=== PATIENT | female | born 1975 | race Caucasian/White ===

== ENCOUNTER 2019-07-24 09:01 | Outpatient (CLI) | payer OTHER, SELFPAY ==
--- NOTE | 2019-07-24 09:20 | NEURO_ITS ---
PATIENT NUMBER: [id number] DATE OF SERVICE: 07/24/2019 IMPRESSION: Patient complains of numbness of hands. # Carpal tunnel syndrome bilaterally, left worse than right. # No ulnar neuropathy # Normal needle/EMG exam Nerve Conduction Studies Anti Sensory Summary Table Stim Site NR Peak (ms) P-T Amp (?V) Site1 Site2 Delta-P (ms) Dist (cm) Idris (m/s) Left Median Anti Sensory (2-3nd Digit) Wrist 4.0 86.6 Wrist 2-3nd Digit 4.0 14.0 35 Wrist 4.1 63.0 Wrist 2-3nd Digit 4.0 14.0 35 Right Median Anti Sensory (2-3nd Digit) Wrist 2.8 92.3 Wrist 2-3nd Digit 2.8 14.0 50 Wrist 5.6 63.2 Wrist 2-3nd Digit 2.8 14.0 50 Left Radial Anti Sensory (Base 1st Digit) Wrist 2.0 24.9 Wrist Base 1st Digit 2.0 0.0 Right Radial Anti Sensory (Base 1st Digit) Wrist 2.1 15.5 Wrist Base 1st Digit 2.1 0.0 Left Ulnar Anti Sensory (5th Digit) Wrist 2.3 69.0 Wrist 5th Digit 2.3 14.0 61 Right Ulnar Anti Sensory (5th Digit) Wrist 2.4 29.1 Wrist 5th Digit 2.4 14.0 58 Motor Summary Table Stim Site NR Onset (ms) O-P Amp (mV) Site1 Site2 Delta-0 (ms) Dist (cm) Idris (m/s) Left Median Motor (Abd Poll Brev) Wrist 5.0 2.2 Elbow Wrist 5.1 28.0 55 Elbow 10.1 2.3 Right Median Motor (Abd Poll Brev) Wrist 3.8 1.5 Elbow Wrist 4.3 28.0 65 Elbow 8.1 1.5 Left Ulnar Motor (Abd Dig Minimi) Wrist 2.2 5.5 A Elbow Wrist 4.8 29.0 60 A Elbow 7.0 4.3 Right Ulnar Motor (Abd Dig Minimi) Wrist 2.3 6.8 A Elbow Wrist 5.0 29.0 58 A Elbow 7.3 4.9 F Wave Studies NR F-Lat (ms) L-R F-Lat (ms) Left Median (Mrkrs) (Abd Poll Brev) 29.59 0.14 Right Median (Mrkrs) (Abd Poll Brev) 29.45 0.14 Left Ulnar (Mrkrs) (Abd Dig Min) 27.80 0.25 Right Ulnar (Mrkrs) (Abd Dig Min) 27.54 0.25 EMG Side Muscle Nerve Root Ins Act Fibs Amp Dur Recrt Comment Right 1stDorInt Ulnar C8-T1 Nml Nml Nml Nml Nml Right Ext Indicis Radial (Post Int) C7-8 Nml Nml Nml Nml Nml Right Ext Digitorum Radial (Post Int) C7-8 Nml Nml Nml Nml Nml Right BrachioRad Radial C5-6 Nml Nml Nml Nml Nml Right PronatorTeres Median C6-7 Nml Nml Nml Nml Nml Right Abd Poll Brev Median C8-T1 Nml Nml Nml Nml Nml Left 1stDorInt Ulnar C8-T1 Nml Nml Nml Nml Nml Left Ext Indicis Radial (Post Int) C7-8 Nml Nml Nml Nml Nml Left Ext Digitorum Radial (Post Int) C7-8 Nml Nml Nml Nml Nml Left BrachioRad Radial C5-6 Nml Nml Nml Nml Nml Left PronatorTeres Median C6-7 Nml Nml Nml Nml Nml Left Abd Poll Brev Median C8-T1 Nml Nml Nml Nml Nml MTDD
== END 2019-07-24 09:02 | disposition home or self-care (01) ==
PROVIDERS: PCP Internal Medicine; Visit Provider Nurse Practitioner Family
DX: G56.03 Carpal tunnel syndrome, bilateral upper limbs (principal)
CPT/HCPCS: 95886; 95911

== ENCOUNTER 2019-11-21 08:26 | Outpatient (CLI) | payer OTHER, SELFPAY ==
--- NOTE | ~2019-11-21 | US_ITS ---
EXAMINATION: US thyroid DATE: 11/21/2019 09:02 INDICATION: Nontoxic single thyroid nodule TECHNIQUE: Multiple ultrasound images of the thyroid were obtained. COMPARISON: None. FINDINGS: The right thyroid lobe measures 4.4 x 3.0 x 3.1 cm. The left thyroid lobe measures 4.6 x 1.4 x 1.5 c m. 3.5 x 2.9 x 2.8 cm predominantly solid hypervascular isoechoic nodule with smooth margins and wit hout internal echogenic foci in the right thyroid lobe (TI-RADS 3, mildly suspicious , FNA if >=2.5 c m, annual followup is >1.5 cm). There is a second wider than tall solid very hypoechoic 1.6 x 1.5 x 0 .9 cm nodule with smooth margins and without internal echogenic foci at the junction of the inferior right thyroid and thyroid isthmus, (TI-RADS 4, moderately suspicious , FNA if >=1.5 cm, annual follow up is >1 cm). There are few <5 mm anechoic cystic nodules in the left thyroid lobe, couple with small peripheral echogenic foci likely representing inspissated colloid. There is normal echotexture, echo genicity and vascular flow throughout the thyroid gland. IMPRESSION: 1. Multiple thyroid nodules, 2 of which in the right lobe meet consensus criteria for ultrasound-guid ed biopsy. Would recommend biopsy of at least the higher grade 1.6 cm TI RADS 4 nodule but would also consider biopsy of the larger 3.5 cm TI RADS 3 nodule. Reviewed, dictated and finalized at location A. IMPRESSION: 1. Multiple thyroid nodules, 2 of which in the right lobe meet consensus criter ia for ultrasound-guided biopsy. Would recommend biopsy of at least the higher grade 1.6 cm TI RADS 4 nodule but would also consider biopsy of the larger 3.5 cm TI RADS 3 nodule.
== END 2019-11-21 08:27 | disposition home or self-care (01) ==
LOC: ANHIMG 08:31
PROVIDERS: PCP Internal Medicine; Visit Provider Internal Medicine Endocrinology, Diabetes & Metabolism
DX: E04.2 Nontoxic multinodular goiter (principal)
CPT/HCPCS: 76536

== ENCOUNTER 2020-01-10 13:09 | Outpatient (CLI) | payer OTHER, SELFPAY ==
--- NOTE | ~2020-01-10 | US_ITS ---
EXAMINATION: US FNA w image guidance DATE: 01/10/2020 14:15 INDICATION: Right thyroid nodule. TECHNIQUE: The procedure and its benefits, risks, and benefits were discussed with the patient. Risks specifical ly discussed included bleeding. The patient verbalized understanding of the risks and agreed to proce ed. The neck was prepped and draped in the usual sterile manner. 1% lidocaine was used for local ane sthesia. 5 passes were made with a 25G needle into the lesion. Appropriate needle location was docu mented with continuous sonographic guidance. There were no immediate complications. The patient unde rstood to call the ordering physician for results after a week and a half and verbalized that underst anding. FINDINGS: Grayscale ultrasound images demonstrate needles advanced into a 1.6 cm nodule in inferior thyroid at the junction of the right thyroid lobe and isthmus for biopsy. IMPRESSION: 1. Ultrasound-guided fine needle aspiration of a thyroid nodule. Reviewed, dictated and finalized at location A.
== END 2020-01-10 13:10 | disposition home or self-care (01) ==
PROVIDERS: PCP Internal Medicine; Visit Provider Internal Medicine Endocrinology, Diabetes & Metabolism
DX: E04.1 Nontoxic single thyroid nodule (principal)
CPT/HCPCS: 10005; 88173; 88305

== ENCOUNTER 2020-01-15 00:07 | Outpatient (CLI) | payer OTHER, SELFPAY ==
[2020-01-15 18:52] LABS: SARS-CoV-2 RNA PCR Negative
== END 2020-01-15 00:08 | disposition home or self-care (01) ==
LOC: ANHCOVIDDT 00:08
PROVIDERS: PCP Internal Medicine; Visit Provider Orthopaedic Surgery
DX: Z01.812 Encounter for preprocedural laboratory examination (principal); Z11.59 Encounter for screening for other viral diseases
CPT/HCPCS: 87635; C9803; U0003

== ENCOUNTER 2020-01-17 00:04 | Day surgery (SDC) | payer OTHER, SELFPAY ==
[2020-01-03 14:13] VITALS: BMI 42.7
--- NOTE | 2020-01-09 12:34 | PM.IMHP ---
H&P: HPI History of Present Illness Chief complaint: right carpal tunnel syndrome Narrative: Manuela Wright is a 44 year old female Hand/Wrist Pain Pt presents with bilateral wrist pain. She has had EMG/Nerve conduction exam 07/24/19. Involved wrist: right (BILATERAL) Dominant hand: right Onset: gradual Description of the injury: BILATERAL Location of pain: posterior, dorsal wrist, radial wrist and carpal bones Timing of pain: intermittent Associated symptoms: Reports instability and weakness Exacerbated by: activities of daily living, writing, manipulative tasks, throwing, rotational activities and extreme limits of motion Swelling: No History of occupational/recreational activity with repetitive movement: No History of prior hand/wrist injury: No Review of Systems Review of Systems: All systems reviewed & are unremarkable except as noted in HPI and below Constitutional: Constitutional: Denies headache(s) and Denies weakness Eyes: Eyes: Denies blurry vision, Denies change in vision and Denies loss of vision ENT: Denies dizziness, Denies dry mouth, Denies headache(s) and Denies nasal congestion Cardiovascular: Cardiovascular: Denies chest pain, Denies syncope, Denies leg edema and Denies dyspnea on exertion Respiratory: Respiratory: Denies cough and Denies dyspnea on exertion Gastrointestinal: Gastrointestinal: Denies abdominal pain, Denies constipation and Denies diarrhea Genitourinary: Genitourinary: Denies urinary frequency Musculoskeletal: Musculoskeletal: Reports as per HPI and Denies numbness Integumentary/Breasts: Skin/Breast: Reports system reviewed and no additional complaints, except as docu Neurologic: Denies dizziness, Denies syncope, Denies headache(s), Denies loss of vision, Denies numbness and Denies weakness Psychiatric: Psychiatric: Reports no additional psychiatric complaints Endocrine: Endocrine: Reports no additional endocrine complaints Hematologic/Lymphatic: Hematologic/Lymphatic: Reports no additional hematologic/lymphatic complaints [facility] Past Medical History Medical History Bilateral hand pain Bilateral wrist pain Carpal tunnel syndrome Surgical History Surgical History H/O arthroscopic knee surgery Family History Family History Mother Diabetes mellitus Hypertension Sibling Hypertension Father Family history of lung cancer Family history of malignant neoplasm of brain Other Family history of cardiovascular disease Family history of thyroid disease Social History Social History Smoking status: Never smoker Alcohol intake: never Spiritual care concerns: No Meds Home Medications and Allergies Home Medications Medication Instructions Recorded Confirmed Type methimazole 5 mg tablet 5 mg PO DAILY #90 tablet 11/12/19 01/03/20 Rx omega-3 fatty acids 1,000 mg 1,000 mg PO DAILY 11/12/19 01/03/20 History capsule chlorhexidine gluconate 4 % 1 applic TOPICAL ONCE #237 ml 12/10/19 01/03/20 Rx topical liquid glucos sul [id number] 1 cap PO DAILY 01/03/20 01/03/20 History [Glucosamine Chondroitin] Allergies Allergy/AdvReac Type Severity Reaction Status Date / Time No Known Allergies Allergy Verified 01/03/20 14:13 Exam Narrative: Exam Narrative: Exam Const Constitutional General: cooperative Nutritional Appearance: average body habitus Orientation/consciousness: patient oriented x3 Constitutional Limitations: no limitations HENMT Head: normal to inspection Ears: hearing grossly normal bilaterally General nose exam: Normal external nose present Face and sinus: normal facial exam Mouth: moist mucous membranes Teeth and gingiva: dentition normal Eyes General: appearance normal, both eyes and all related structures
--- NOTE | 2020-01-16 10:37 | WPDANESEPPF ---
Anes - Initial Pre Proc Eval Procedure: Operation Date: 01/17/20 07:30 Proposed Procedures p Right Carpal Tunnel Release - Chano Karimi MD Date/Time: 01/16/20 10:37 Surgeon: Chano Karimi MD Pre Op Diagnosis: right carpal tunnel syndrome Patient Data Age: 44 Gender: F Height: 1.68 m Weight: 120.2 kg Allergies Allergy/AdvReac Type Severity Reaction Status Date / Time No Known Allergies Allergy Verified 01/03/20 14:13 Home Medications Medication Instructions Recorded Confirmed Type methimazole 5 mg tablet 5 mg PO DAILY #90 tablet 11/12/19 01/03/20 Rx omega-3 fatty acids 1,000 mg 1,000 mg PO DAILY 11/12/19 01/03/20 History capsule chlorhexidine gluconate 4 % 1 applic TOPICAL ONCE #237 ml 12/10/19 01/03/20 Rx topical liquid glucos sul [id number]-Mn 1 cap PO DAILY 01/03/20 01/03/20 History [Glucosamine Chondroitin] Patient hx anesthesia problems: none Family hx anesthesia problems: none PMF[facility] Past Medical History Medical History (Updated 01/16/20 @ 10:37 by Marcell García DO) Bilateral hand pain Bilateral wrist pain Carpal tunnel syndrome GERD (gastroesophageal reflux disease) Hyperthyroidism Surgical History Surgical History (Updated 01/16/20 @ 10:37 by Marcell García DO) H/O arthroscopic knee surgery History of cholecystectomy Family History Family History Mother Diabetes mellitus Hypertension Sibling Hypertension Father Family history of lung cancer Family history of malignant neoplasm of brain Other Family history of cardiovascular disease Family history of thyroid disease Social History Social History Smoking status: Never smoker Alcohol intake: never Spiritual care concerns: No Anes - Eval Final PreProcedure Day of Procedure 01/16/20 10:37 Patient weight: morbidly obese Heart: regular rate and rhythm Lungs: clear to auscultation and normal air movement Airway: Mallampati scale class 1 Neurological: alert and oriented Last oral intake: >/= 8 hours ASA classification: III Emergent: no Anesthetic plan: proceed Anesthesia type and monitoring: general LMA and standard monitoring Informed Consent: The patient's anesthetic plan and its attendant risks and benefits were discussed with the patient/family/POA. Questions were solicited and answers provided to the satisfaction of the patient/family/POA.
[2020-01-17] VITALS (7 sets, daily range): BP systolic 119–142; BP diastolic 73–95; PULSE 49–68; RESP 12–16; TEMP 35.9–36.2; O2SAT 98–100
[2020-01-17] MEDS: CELECOXIB 200 MG CAPSULE PO (06:43)
[2020-01-17] MEDS: LACTATED RINGERS 1,000 ML 30 ML IV CONT (06:44)
--- NOTE | 2020-01-17 07:26 | WPDHPUPDATE1 ---
History and Physical Update Update Date/Time: 01/17/20 07:26 History and Physical has been reviewed, including an updated exam of the patient. There are NO changes in the patient's condition. Risks, benefits, and alternatives have been discussed and questions answered. Patient agrees to proceed with procedure.
[2020-01-17] MEDS: ceFAZolin 2 GM/D5W 50 ML 2 GM/50 ML BAG IVPB (07:30)
--- NOTE | 2020-01-17 08:12 | PM.OP ---
Procedure Note - Brief Procedure Note - Brief Date of procedure: 01/17/20 Pre-op diagnosis: right carpal tunnel syndrome Post-op diagnosis: same Procedure performed: R CTR Anesthesia: GLMA Surgeon: Chano Karimi MD Estimated blood loss (mL): 5 Complications: No immediate complications Condition: stable Disposition: PACU
--- NOTE | 2020-01-17 10:40 | OP_ITS ---
DATE OF PROCEDURE: 01/17/2020 PREOPERATIVE DIAGNOSIS: Right carpal tunnel syndrome. POSTOPERATIVE DIAGNOSIS: Right carpal tunnel syndrome. PROCEDURE: Right carpal tunnel release. ANESTHESIA: General. COMPLICATIONS: None. INDICATIONS: This is a 44-year-old female with right carpal tunnel syndrome. She failed conservative treatment. She was indicated for right carpal tunnel release. DESCRIPTION OF PROCEDURE: The patient was taken to the operating room in stable condition and placed in supine position. General anesthesia was induced and the right upper extremity was prepped and draped sterilely from the fingers to the to the forearm. Tourniquet was inflated. The carpal tunnel was identified with the flexed ring finger over the palm. The cardinal line was drawn. Incision was made over the mid palm down to the subcutaneous tissues and then, the palmar fascia was identified and that was incised and then, using a mosquito hemostat, the median nerve was protected and the palmar fascia was released down to the transcarpal ligament. Transcarpal ligament then was identified. Then, Metzenbaum scissors were used to incise the transcarpal ligament until there was complete release of the carpal tunnel. The tourniquet was deflated. Bleeders were cauterized. The wound was irrigated thoroughly. Local anesthetic was used in the skin. The skin edges were approximated with 4-0 nylon suture. Sterile dressing was applied. The patient was then sent to Recovery in stable condition. Mike I MT: Pedro
== END 2020-01-17 09:36 | disposition home or self-care (01) ==
PROVIDERS: PCP Internal Medicine; Visit Provider Orthopaedic Surgery
PROC: (CPT 64721; principal; 2020-01-17 07:30)
DX: G56.01 Carpal tunnel syndrome, right upper limb (principal); K21.9 Gastro-esophageal reflux disease without esophagitis; E05.90 Thyrotoxicosis, unspecified without thyrotoxic crisis or storm; E66.01 Morbid (severe) obesity due to excess calories; Z68.41 Body mass index [BMI] 40.0-44.9, adult
CPT/HCPCS: 64721; A9270; J0690; J1100; J2250; J2405; J2704; J3010; J7120

== ENCOUNTER → 2020-04-14 13:30 | Outpatient (CLI) | payer OTHER, SELFPAY ==
--- NOTE | ~2020-04-14 | MM_ITS ---
EXAMINATION: MM screening jie BI w bora HISTORY: Screening TECHNIQUE: Craniocaudal and mediolateral oblique 3-D tomosynthesis images were obtained and synthetic 2-D images were generated. CAD analysis was submitted and interpreted. COMPARISON: Comparison to multiple prior studies sequentially, with oldest reviewed study dated 02/01. BREAST PARENCHYMAL COMPOSITION: There are scattered areas of fibroglandular density. FINDINGS: There is no evidence of suspicious mass, calcification, or architectural distortion to sugg est malignancy in either breast. There has been no suspicious interval change. IMPRESSION: 1. No mammographic evidence of malignancy. 2. Recommend routine screening mammography in one year. BI-RADS Category 1: Negative Reviewed, dictated and finalized at location A. 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
== END ==
PROVIDERS: Visit Provider Obstetrics & Gynecology
DX: Z12.31 Encounter for screening mammogram for malignant neoplasm of breast (principal)
CPT/HCPCS: 77063; 77067

== ENCOUNTER → 2021-06-28 10:24 | Outpatient (CLI) | payer OTHER, SELFPAY ==
--- NOTE | ~2021-06-28 | MM_ITS ---
EXAMINATION: MM screening jie BI w bora HISTORY: Screening TECHNIQUE: Craniocaudal and mediolateral oblique 3-D tomosynthesis images were obtained and synthetic 2-D images were generated. CAD analysis was submitted and interpreted. COMPARISON: Comparison to multiple prior studies sequentially, with oldest reviewed study dated 02/01. BREAST PARENCHYMAL COMPOSITION: There are scattered areas of fibroglandular density. FINDINGS: There is no evidence of suspicious mass, calcification, or architectural distortion to sugg est malignancy in either breast. There has been no suspicious interval change. IMPRESSION: 1. No mammographic evidence of malignancy. 2. Recommend routine screening mammography in one year. BI-RADS Category 1: Negative Reviewed, dictated and finalized at location B. 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
== END ==
PROVIDERS: Visit Provider Obstetrics & Gynecology
DX: Z12.31 Encounter for screening mammogram for malignant neoplasm of breast (principal)
CPT/HCPCS: 77063; 77067

== ENCOUNTER 2021-08-05 07:53 | Outpatient (CLI) | payer OTHER, SELFPAY ==
--- NOTE | ~2021-08-05 | US_ITS ---
EXAMINATION: US thyroid DATE: 08/05/2021 08:25 INDICATION: Nontoxic single thyroid nodule. TECHNIQUE: Multiple ultrasound images of the thyroid were obtained. COMPARISON: Ultrasound 11/21/2019, thyroid scintigraphy 08/28/2018 FINDINGS: The right thyroid lobe measures 5.6 x 3.3 x 2.5 cm. The left thyroid lobe measures 4.3 x 1.4 x 1.4 c m. The thyroid demonstrates heterogeneous echogenicity and increased vascularity. In the right thyroi d lobe, there is a 1.4 cm solid, hypoechoic, fxafq-kafn-riqv nodule with smooth margin without echoge jenn foci (TI-RADS TR4). In the right thyroid lobe, there is a 3.5 cm predominantly solid, isoechoic, ejbfo-ldab-xyzb nodule with smooth margin without echogenic foci (TR3). IMPRESSION: 1. 1.4 cm right thyroid nodule, stable from 11/21/2019. Biopsy on 01/10/2020 demonstrated pathology con sistent with benign follicular nodule with Hurthle cells. 2. 3.5 cm TR3 right thyroid nodule, hyperactive on 08/28/18 and stable from 11/21/2019, likely benign. 3. Heterogeneous, hypervascular thyroid, likely chronic lymphocytic (Elaine) thyroiditis. Reviewed, dictated and finalized at location A. 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 1.4 cm right thyroid nodule, stable from 11/21/2019. Biopsy on 01/10/2020 demo nstrated pathology consistent with benign follicular nodule with Hurthle cells. 2. 3.5 cm TR3 right thyroid nodule, hyperactive on 08/28/18 and stable from 11/20, likely benign. 3. Heterogeneous, hypervascular thyroid, likely chronic lymphocytic (Elaine) thyroiditis.
[2021-08-05 09:45] LABS: Thyroid Stimulating Hormone 0.822 uIU/mL (0.465-4.680)
== END 2021-08-05 07:54 | disposition home or self-care (01) ==
LOC: ANHIMG 07:57
PROVIDERS: PCP Internal Medicine; Visit Provider Internal Medicine Endocrinology, Diabetes & Metabolism
DX: E04.1 Nontoxic single thyroid nodule (principal); E05.90 Thyrotoxicosis, unspecified without thyrotoxic crisis or storm
CPT/HCPCS: 36415; 76536; 84443

== ENCOUNTER → 2022-09-20 14:40 | Outpatient (CLI) | payer OTHER, SELFPAY ==
--- NOTE | ~2022-09-20 | MM_ITS ---
EXAMINATION: MM screening jie BI w bora HISTORY: Screening mammogram TECHNIQUE: Craniocaudal and mediolateral oblique 3-D tomosynthesis images were obtained and synthetic 2-D images were generated. CAD analysis was submitted and interpreted. COMPARISON: , 04/14/2020, 03/06/2019 bilateral screening mammogram examinations BREAST PARENCHYMAL COMPOSITION: There are scattered areas of fibroglandular density. FINDINGS: There is no evidence of suspicious mass, calcification, or architectural distortion to sugg est malignancy in either breast. There has been no suspicious interval change. IMPRESSION: 1. No mammographic evidence of malignancy. 2. Recommend routine screening mammography in one year. BI-RADS Category 1: Negative Reviewed, dictated and finalized at location A.
== END ==
PROVIDERS: PCP Obstetrics & Gynecology; Visit Provider Obstetrics & Gynecology
DX: Z12.31 Encounter for screening mammogram for malignant neoplasm of breast (principal)
CPT/HCPCS: 77063; 77067

== ENCOUNTER 2024-10-31 14:12 | Outpatient (CLI) | payer OTHER, SELFPAY ==
--- NOTE | ~2024-10-31 | MM_ITS ---
EXAMINATION: MM screening jie BI w bora HISTORY: Screening TECHNIQUE: Craniocaudal and mediolateral oblique 3-D tomosynthesis images were obtained and synthetic 2-D images were generated. CAD analysis was submitted and interpreted. COMPARISON: Comparison to multiple prior studies sequentially, with oldest reviewed study dated 01/2017. BREAST PARENCHYMAL COMPOSITION: Not dense: There are scattered areas of fibroglandular density. FINDINGS: There is no evidence of suspicious mass, calcification, or architectural distortion to sugg est malignancy in either breast. There has been no suspicious interval change. IMPRESSION: 1. No mammographic evidence of malignancy. 2. Recommend routine screening mammography in one year. BI-RADS Category 1: Negative Reviewed, dictated and finalized at location B.
== END 2024-10-31 14:13 | disposition home or self-care (01) ==
PROVIDERS: PCP Obstetrics & Gynecology; Visit Provider Obstetrics & Gynecology
DX: Z12.31 Encounter for screening mammogram for malignant neoplasm of breast (principal)
CPT/HCPCS: 77063; 77067